=== PATIENT | female | born 1985 | race Caucasian/White ===

== ENCOUNTER 2018-12-26 06:17 | Inpatient (IN) ==
[2018-12-26] MEDS ORDERED: BUPIVACAINE 0.5% 50 ML VIAL ONE (06:29)
[2018-12-26] MEDS ORDERED: BUPIVACAINE SPINAL 0.75% 2 ML AMP SPINAL ONE (06:29)
[2018-12-26] MEDS ORDERED: DEXAMETHASONE 4 MG/1 ML VIAL ONE (06:29)
[2018-12-26] MEDS ORDERED: EPINEPHrine 1 MG/ML VIAL ONE (06:30)
[2018-12-26] MEDS ORDERED: ONDANSETRON 4 MG/2 ML VIAL IV PRN ×2 (06:42→08:58)
[2018-12-26] MEDS ORDERED: OXYTOCIN/LR 20 UNIT/1,000 ML BAG IV ONE ×2 (06:43→08:58)
[2018-12-26] MEDS ORDERED: FAMOTIDINE 20 MG/2 ML VIAL IV ONE (06:44)
[2018-12-26] MEDS ORDERED: ceFAZolin 3,000 MG in SYRINGE 1 EACH IV ONE (06:44)
[2018-12-26] MEDS ORDERED: CITRIC ACID/SODIUM CITRATE 30 ML UDCUP PO ONE (06:44)
[2018-12-26] MEDS: LACTATED RINGERS 1,000 ML IV SCH ×2 (07:05→07:32)
[2018-12-26 07:11] LABS: Basophils % 0.3 % (0.0-0.8); Eosinophils # 0.1 10*3/uL (0.0-0.87); Eosinophils % 0.8 % (0.00-10.9); Hemoglobin 8.8 GM/DL (12.0-16.0); Immature Granulocytes % 0.7 %; Immature Granulocytes Absolute 0.05 #; Lymphocytes # 1.4 10*3/uL (1.4-4.0); Lymphocytes % 18.8 % (21.3-54.2); Mean Corpuscular HGB Conc 31.4 GM/DL (32-36); Mean Corpuscular Volume 86.4 FL (87-102); Mean Platelet Volume 10.7 FL (9.6-12.0); Monocytes % 8.3 % (1.7-12.7); Neutrophils % 71.1 % (38.7-73.9); Platelet Count 170 T/CUMM (130-400); Red Blood Count 3.24 MC/CUMM (3.8-5.5); Red Cell Distribution Width 16.1 % (9.3-17.3); White Blood Count 7.6 T/CUMM (4-12)
[2018-12-26 07:35] LABS: Albumin 2.4 G/DL (3.4-5.0); Bilirubin,Total 1.3 MG/DL (0.2-1.0); Calcium 8.2 MG/DL (8.5-10.1); Osmolality,Calculated 273.7 MOS/KG (273-304); Total Protein 6.1 G/DL (6.4-8.3)
[2018-12-26] MEDS ORDERED: MAGNESIUM HYDROXIDE SUSP 30 ML UDCUP PO PRN (08:58)
[2018-12-26] MEDS ORDERED: ACETAMINOPHEN 325 MG TABLET PO PRN (08:58)
[2018-12-26] MEDS ORDERED: RHO(D) IMMUNE GLOBULIN 300 MCG SYRINGE IM ONE (08:58)
[2018-12-26] MEDS ORDERED: LACTATED RINGERS 1,000 ML IV SCH (09:00)
[2018-12-26 09:09] LABS: Apearance,Urine CLEAR (Clear); Bilirubin,Urine Negative (Negative); Blood, Urine Negative (Negative); Glucose,Urine (UA) Negative (Negative); Ketones,Urine 5 mg/dL (Negative); Mucus,Urine Many /LPF (Occasional); Nitrite,Urine Negative (Negative); Protein,Urine Negative; RBC,Urine 1 /HPF (0-4); Squamous Epithelial Cell,Urine Occasional /HPF (0-10); Urine Color Yellow (Yellow); Urine Urobilinogen < 2.0 EU/DL (0.2-1.0); WBC,Urine 1 /HPF (0-6)
[2018-12-26] MEDS ORDERED: fentaNYL 100 MCG/2 ML VIAL ONE (09:36)
[2018-12-26] MEDS ORDERED: ePHEDrine 50 MG/ML AMP ONE (09:36)
[2018-12-26] MEDS ORDERED: MORPHINE 10 MG/10 ML VIAL ONE (09:37)
[2018-12-26] MEDS ORDERED: PHENYLEPHRINE 1 MG/10 ML SYRINGE IV ONE (09:38)
[2018-12-26] MEDS ORDERED: KETOROLAC 30 MG/1 ML VIAL IV ONE (11:56)
[2018-12-26] MEDS: ceFAZolin 1,000 MG in SYRINGE 1 EACH IV SCH (15:14)
[2018-12-26] MEDS: DOCUSATE SODIUM 100 MG CAPSULE PO SCH (19:53)
[2018-12-26] MEDS: SIMETHICONE CHEW 80 MG TABLET PO PRN (19:53)
[2018-12-26 20:01] LABS: Basophils % 0.1 % (0.0-0.8); Hematocrit 23.6 VOL% (35.7-47.0); Hemoglobin 7.5 GM/DL (12.0-16.0); Immature Granulocytes % 0.7 %; Immature Granulocytes Absolute 0.07 #; Lymphocytes # 0.8 10*3/uL (1.4-4.0); Lymphocytes % 7.7 % (21.3-54.2); Mean Corpuscular HGB Conc 31.8 GM/DL (32-36); Mean Corpuscular Volume 86.4 FL (87-102); Mean Platelet Volume 11.1 FL (9.6-12.0); Monocytes % 5.5 % (1.7-12.7); Platelet Count 142 T/CUMM (130-400); Red Blood Count 2.73 MC/CUMM (3.8-5.5); Red Cell Distribution Width 15.9 % (9.3-17.3); White Blood Count 10.7 T/CUMM (4-12)
[2018-12-27] MEDS: ceFAZolin 1,000 MG in SYRINGE 1 EACH IV SCH (00:01)
[2018-12-27] MEDS: DOCUSATE SODIUM 100 MG CAPSULE PO SCH ×4 (01:35→20:48)
[2018-12-27] MEDS: IBUPROFEN 800 MG TABLET PO PRN ×3 (02:41→17:13)
[2018-12-27 04:24] LABS: Basophils % 0.1 % (0.0-0.8); Eosinophils % 0.3 % (0.00-10.9); Hematocrit 23.2 VOL% (35.7-47.0); Hemoglobin 7.3 GM/DL (12.0-16.0); Immature Granulocytes % 0.5 %; Immature Granulocytes Absolute 0.05 #; Lymphocytes # 1.3 10*3/uL (1.4-4.0); Lymphocytes % 13.6 % (21.3-54.2); Mean Corpuscular HGB Conc 31.5 GM/DL (32-36); Mean Corpuscular Volume 86.6 FL (87-102); Mean Platelet Volume 11.2 FL (9.6-12.0); Monocytes % 7.7 % (1.7-12.7); Neutrophils % 77.8 % (38.7-73.9); Platelet Count 144 T/CUMM (130-400); Red Blood Count 2.68 MC/CUMM (3.8-5.5); Red Cell Distribution Width 15.9 % (9.3-17.3); White Blood Count 9.5 T/CUMM (4-12)
[2018-12-27 08:19] LABS: Basophils % 0.1 % (0.0-0.8); Eosinophils % 0.5 % (0.00-10.9); Hematocrit 21.7 VOL% (35.7-47.0); Immature Granulocytes % 0.4 %; Immature Granulocytes Absolute 0.03 #; Lymphocytes # 1.5 10*3/uL (1.4-4.0); Lymphocytes % 17.1 % (21.3-54.2); Mean Corpuscular HGB Conc 32.3 GM/DL (32-36); Mean Corpuscular Volume 86.5 FL (87-102); Mean Platelet Volume 10.5 FL (9.6-12.0); Monocytes % 8.4 % (1.7-12.7); Neutrophils % 73.5 % (38.7-73.9); Platelet Count 132 T/CUMM (130-400); Red Blood Count 2.51 MC/CUMM (3.8-5.5); Red Cell Distribution Width 15.9 % (9.3-17.3); White Blood Count 8.5 T/CUMM (4-12)
[2018-12-27] MEDS: MULTIVITAMIN (PRENATAL) TABLET PO SCH ×2 (08:39→08:41)
[2018-12-27] MEDS: FERROUS SULFATE 325 MG TABLET PO SCH ×3 (08:39→20:48)
[2018-12-27] MEDS ORDERED: RHO(D) IMMUNE GLOBULIN 300 MCG SYRINGE IM ONE (14:50)
[2018-12-27] MEDS: SIMETHICONE CHEW 80 MG TABLET PO PRN (20:49)
[2018-12-28] MEDS ORDERED: BISACODYL 10 MG SUPP RECTAL PRN (02:05)
[2018-12-28] MEDS: SIMETHICONE CHEW 80 MG TABLET PO PRN (02:20)
[2018-12-28] MEDS: IBUPROFEN 800 MG TABLET PO PRN (02:20)
[2018-12-28 07:22] VITALS: BP 139/79
[2018-12-28] MEDS: MULTIVITAMIN (PRENATAL) TABLET PO SCH (09:56)
[2018-12-28] MEDS: DOCUSATE SODIUM 100 MG CAPSULE PO SCH (09:56)
[2018-12-28] MEDS: FERROUS SULFATE 325 MG TABLET PO SCH (09:57)
== END 2018-12-28 11:35 | disposition home or self-care (01) | DRG 785 ==
LOC: N.LD 06:17 → N.OB 13:20
PROVIDERS: ADMIT Obstetrics & Gynecology; ATTEND Obstetrics & Gynecology